=== PATIENT | male | born 1970 | race Caucasian/White ===

== ENCOUNTER → 2020-01-31 08:56 | Outpatient (CLI) | payer MEDICARE, SELFPAY ==
--- NOTE | 2020-01-31 08:56 | CT_ITS ---
PROCEDURE: CT ABDOMEN PELVIS W CON CLINICAL INDICATION: hernia Umbilical hernia, bloating, discomfort COMPARISON: No exams were available for comparison TECHNIQUE: IV Contrast: 75ML OPTIRAY 350 Oral Contrast 450ml Redicat Axial images obtained with sagittal and coronal reformats. All CT scans at the facility use one or more dose reduction, viz: automated exposure control, ma/kV adjustment per patient size (including targeted exams where dose is matched to indication, i.e. head), or iterative reconstruction technique. FINDINGS: LOWER THORAX: There are mild atelectatic changes in the lung bases. Coronary artery calcifications are noted. Left hemidiaphragm is elevated. ABDOMEN & PELVIS: Cirrhotic appearance of the liver with diffuse abdominal and peritoneal ascites. No focal liver lesion is evident. There is mild splenomegaly at 14 cm. There is mild thickening the wall the stomach in the fundus and upper body of the stomach nonspecific. There are scattered small varices in the epigastric region. No obvious gallstones. The adrenal glands and kidneys and pancreas has an unremarkable appearance. No intestinal obstruction or free air. There are mesenteric varices noted. No evidence of appendicitis or diverticulitis. There are scattered diverticula in the sigmoid colon. No acute bony findings. IMPRESSION: 1. Cirrhosis with splenomegaly, mesenteric varices, and diffuse ascites 2. Coronary artery calcifications. 3. Thickening of the wall the stomach which could be due to nondistention versus gastritis. Dictated by: Ash Martinez MD 02/01/2020 08:52 Electronically signed by Ash Martinez MD in [place] 02/01/2020 08:52
== END ==
PROVIDERS: PCP Family Medicine; Visit Provider Surgery
DX: K46.9 Unspecified abdominal hernia without obstruction or gangrene (principal); R10.9 Unspecified abdominal pain
CPT/HCPCS: 74177; Q9967

== ENCOUNTER → 2020-01-31 10:23 | Outpatient (CLI) | payer MEDICARE, SELFPAY ==
[2020-01-31 10:29] LABS: Microscopic, Urine URINE MICROSCOPIC (MICROSCOPIC)
[2020-01-31 11:04] LABS: Basophils % 0.4 % (0.1-2.0); Eosinophils # 0.1 K/mm3 (0.0-0.4); Eosinophils % 0.5 % (0.1-12.0); Hematocrit 44.7 % (42.0-52.0); Hemoglobin 14.3 g/dL (14.1-18.0); Lymphocytes # 0.5 K/mm3 (0.7-4.5); Mean Corpuscular Hemoglobin 33.6 pg (27.0-31.2); Mean Corpuscular Volume 105.1 fl (80-94); Monocytes # 0.4 K/mm3 (0.1-1.0); Monocytes % 3.6 % (1.7-9.3); Neutrophils % 90.5 % (37.0-80.0); Platelet Count 65 K/mm3 (142-424); Red Blood Count 4.26 M/mm3 (4.60-6.20); Red Cell Distribution Width 16.2 % (11.5-17.5)
[2020-01-31 11:33] LABS: MANUAL DIFFERENTIAL MANUAL DIFFERENTIAL (MANUAL DIFF)
[2020-01-31 12:18] LABS: Alanine Aminotransferase 57 U/L (12-78); Albumin Level 3.9 g/dl (3.5-5.0); Alkaline Phosphatase 170 U/L (38-126); Anion Gap 12.3 mEq/L (5-15); Aspartate Amino Transferase 102 U/L (17-59); Bilirubin,Total 2.7 mg/dl (0.2-1.3); Blood Urea Nitrogen 8 mg/dl (9-20); Calcium 9.7 mg/dl (8.4-10.2); Carbon Dioxide 32 mmol/L (22.0-30.0); Chloride 94 mmol/L (98-107); Estimated Glomerular Filt Rate 175 ml/min (>60); GFR (African American) 212 ML/MIN (>60); Globulin 3.8 g/dL (1.3-3.2); Glucose 128 mg/dl (74-100); Potassium 5.3 mmoL/L (3.5-5.1); Sodium 133 mmol/L (136-145); Total Protein,Serum 7.7 g/dl (6.3-8.2)
[2020-01-31 13:01] LABS: Coronavirus 19 IgG Antibody Negative (Negative); Coronavirus 19 IgM Antibody Negative (Negative)
[2020-01-31 13:39] LABS: Appearance,Urine CLEAR (Clear); Bilirubin,Urine Negative (Negative); Blood, Urine Negative (Negative); Color,Urine YELLOW (Yellow); Glucose,Urine (UA) Negative (Negative); Ketones,Urine Negative (Negative); Leukocyte Esterase,Urine Negative (Negative); Nitrate,Urine Negative (Negative); PH,Urine 7.5 (5.0-8.5); Protein,Urine Negative (Negative)
[2020-01-31 13:41] LABS: Lymphocytes % 7 % (10-50); Monocytes % 3 % (2-9); Neutrophils % 90 % (42-76); Platelet Estimate Marked Decrease; Total Cells Counted 100
[2020-01-31 13:42] LABS: Macrocytosis 1+
[2020-01-31 14:02] LABS: RBC,Urine Occasional #/hpf (0-3); Squamous Epithelial Cell,Urine Occasional #/hpf (0-5); WBC,Urine Occasional #/hpf (0-3)
== END ==
LOC: LAB 10:24
PROVIDERS: Visit Provider Surgery
DX: K46.9 Unspecified abdominal hernia without obstruction or gangrene (principal); Z01.818 Encounter for other preprocedural examination
CPT/HCPCS: 36415; 74177; 80053; 81001; 85007; 85025; 86328; Q9967

== ENCOUNTER → 2020-02-01 11:36 | Outpatient (CLI) | payer MEDICARE, SELFPAY ==
[2020-02-01 12:15] LABS: INR 1.43 (0.9-1.1); Prothrombin Time 14.4 seconds (9.4-11.8)
== END ==
PROVIDERS: Visit Provider Surgery
DX: R10.84 Generalized abdominal pain (principal)
CPT/HCPCS: 85610

== ENCOUNTER → 2020-02-27 09:40 | Outpatient (POV) | payer MEDICARE, SELFPAY ==
[2020-02-27 12:41] LABS: Basophils % 0.5 % (0.1-2.0); Eosinophils # 0.1 K/mm3 (0.0-0.4); Eosinophils % 1.2 % (0.1-12.0); Hemoglobin 14.8 g/dL (14.1-18.0); Lymphocytes # 1.1 K/mm3 (0.7-4.5); Lymphocytes % 20.7 % (10-50); Mean Corpuscular HGB Conc 33.6 g/dL (31.8-35.4); Mean Corpuscular Hemoglobin 34.8 pg (27.0-31.2); Mean Corpuscular Volume 103.5 fl (80-94); Monocytes # 0.8 K/mm3 (0.1-1.0); Monocytes % 14.9 % (1.7-9.3); Neutrophils # 3.3 K/mm3 (1.8-7.8); Neutrophils % 62.7 % (37.0-80.0); Platelet Count 78 K/mm3 (142-424); Red Blood Count 4.25 M/mm3 (4.60-6.20); Red Cell Distribution Width 15.7 % (11.5-17.5); White Blood Count 5.3 K/mm3 (4.8-10.8)
[2020-02-27 13:14] LABS: Chloride 90 mmol/L (98-107)
[2020-02-27 13:15] LABS: Potassium 3.8 mmoL/L (3.5-5.1); Sodium 130 mmol/L (136-145)
[2020-02-27 13:17] LABS: Alkaline Phosphatase 124 U/L (38-126); Anion Gap 8.8 mEq/L (5-15); Bilirubin,Total 1.8 mg/dl (0.2-1.3); Blood Urea Nitrogen 12 mg/dl (9-20); Carbon Dioxide 35 mmol/L (22.0-30.0); Estimated Glomerular Filt Rate 142 ml/min (>60); GFR (African American) 172 ML/MIN (>60); Iron 47 ug/dL (49-181)
[2020-02-27 13:18] LABS: Alanine Aminotransferase 60 U/L (12-78); Albumin Level 3.1 g/dl (3.5-5.0); Aspartate Amino Transferase 103 U/L (17-59); Globulin 3.2 g/dL (1.3-3.2); Total Protein,Serum 6.3 g/dl (6.3-8.2)
[2020-02-27 13:23] LABS: Calcium 8.3 mg/dl (8.4-10.2)
[2020-02-27 13:26] LABS: Total Iron Binding Capacity 363 ug/dL (261-462)
[2020-02-27 13:44] LABS: Glucose 137 mg/dl (74-100)
[2020-02-27 13:48] LABS: INR 1.43 (0.9-1.1); Prothrombin Time 14.4 seconds (9.4-11.8)
[2020-02-27 13:52] LABS: Ferritin 75.1 ng/ml (17.9-464)
[2020-02-28 10:11] LABS: Hep A Ab, IgM Negative (Negative); Hepatitis B Core Antibody IgM Negative (Negative); Hepatitis B Surface Antigen Negative (Negative)
[2020-02-28 13:13] LABS: Ceruloplasmin 30.4 mg/dL (16.0-31.0); Immunoglobulin A, Qn 487 mg/dL (90-386); Immunoglobulin G, Qn 1252 mg/dL (603-1613)
[2020-02-28 14:15] LABS: Angiotensin Converting Enzyme <15 U/L (14-82)
[2020-02-29 04:46] LABS: Actin (Smooth Muscle) Antibody 13 Units (0-19); Hepatitis C Antibody 0.7 s/co ratio (0.0-0.9); Immunoglobulin M, Qn 72 mg/dL (20-172); Mitochondrial (M2) Antibody <20.0 Units (0.0-20.0)
[2020-02-29 04:47] LABS: Antinuclear Antibodies, IFA Negative (.); Deamidated Gliadin Abs, IgA 7 units (0-19); Deamidated Gliadin Abs, IgG 3 units (0-19); Endomysial IgA Antibody Negative (Negative); Liver-Kidney Microsomal Ab 1.3 Units (0.0-20.0); Tissue Transglutaminase IgA Ab <2 U/mL (0-3); Tissue Transglutaminase IgG Ab 14 U/mL (0-5)
[2020-02-29 11:05] LABS: Reticulin IgA Antibody Negative titer (Neg:<1:2.5)
[2020-03-01 06:31] LABS: ALT (SGPT) P5P 56 IU/L (0-55); AST (SGOT) P5P 85 IU/L (0-40); Alpha 2-Macroglobulins, Qn 234 mg/dL (110-276); Apolipoprotein A-1 83 mg/dL (101-178); Bilirubin, Total 1.4 mg/dL (0.0-1.2); Cholesterol, Total 137 mg/dL (100-199); Fibrosis Score 0.88 (0.00-0.21); GGT 204 IU/L (0-65); Glucose 135 mg/dL (65-99); Haptoglobin 50 mg/dL (29-370); Steatosis Score 0.78 (0.00-0.30); Triglycerides 57 mg/dL (0-149)
[2020-03-01 11:17] LABS: Alpha-1-Antitrypsin 173 mg/dL (101-187)
[2020-03-01 11:33] LABS: Phenotype (PI) MS (.)
== END ==
PROVIDERS: Visit Provider Nurse Practitioner Family
DX: R14.0 Abdominal distension (gaseous) (principal); K59.00 Constipation, unspecified; K64.9 Unspecified hemorrhoids; D50.9 Iron deficiency anemia, unspecified; Z51.81 Encounter for therapeutic drug level monitoring; R94.5 Abnormal results of liver function studies
CPT/HCPCS: 36415; 80053; 80074; 81256; 82103; 82104; 82164; 82390; 82728; 82784; 83516; 83540; 83550; 85025; 85610; 86038; 86255; 86256; 86376

== ENCOUNTER → 2020-03-01 08:06 | Outpatient (CLI) | payer MEDICARE, SELFPAY ==
--- NOTE | 2020-03-01 | US_ITS ---
PROCEDURE: US ABDOMEN LIMITED CLINICAL INDICATION: CIRRHOSIS Bloating COMPARISON: No exams were available for comparison FINDINGS: PANCREAS: Pancreas is not well delineated due to overlying bowel gas. CT or MRI without and with contrast with pancreatic protocol may provide further evaluation if clinically desired. LIVER: Cirrhotic appearance of the liver. There is increased echogenicity in the region of the proximal portal vein and SMV region with inconsistent areas of blood flow. Cannot exclude the possibility portal venous thrombosis. CT angiography with portal venous phase may provide further evaluation. RIGHT KIDNEY: Unremarkable. Normal size and echogenicity. No hydronephrosis GALLBLADDER: No gallstones, gallbladder wall thickening, pericholecystic fluid, or biliary dilatation. There is mild amount diffuse ascites. IMPRESSION: 1. Findings compatible with cirrhosis with ascites. 2. Low level echoes within the proximal portal vein area raising the suspicion of possible portal vein thrombosis. A CT angiogram with portal venous phase of the abdomen may provide further evaluation Dictated by: Ash Martinez MD 03/02/2020 15:58 Electronically signed by Ash Martinez MD in [facility] 03/02/2020 15:58
== END ==
LOC: RAD 08:07
PROVIDERS: Visit Provider Nurse Practitioner Family
DX: R14.0 Abdominal distension (gaseous) (principal); R19.4 Change in bowel habit; R94.5 Abnormal results of liver function studies; K74.60 Unspecified cirrhosis of liver; K70.0 Alcoholic fatty liver; F10.10 Alcohol abuse, uncomplicated; Z12.11 Encounter for screening for malignant neoplasm of colon
CPT/HCPCS: 76705

== ENCOUNTER → 2020-03-07 11:15 | Outpatient (CLI) | payer MEDICARE, SELFPAY ==
--- NOTE | 2020-03-07 | CT_ITS ---
Procedure: CT ANGIO ABDOMEN PELVIS CLINICAL HISTORY: Bloating, cirrhosis, possible portal venous thrombosis on recent ultrasound COMPARISON: No exams were available for comparison TECHNIQUE: IV Contrast: 100ml Optiray 350 Axial images obtained with sagittal and coronal reformats. All CT scans at the facility use one or more dose reduction, viz: automated exposure control, ma/kV adjustment per patient size (including targeted exams where dose is matched to indication, i.e. head), or iterative reconstruction technique. FINDINGS: Three-phase imaging performed post enhancement with arterial, portal venous, and delayed images. There is moderate stenosis of the ostium of the celiac artery of 50 percent. The SMA has an unremarkable appearance. There is 50 percent stenosis of the ostium the right renal artery. Atheromatous changes are present at the ostium of the left renal artery but no significant stenosis. There is no evidence of portal venous thrombosis. The superior mesenteric vein and splenic vein appears patent radiating into a patent portal vein. The there is cirrhotic appearance of the liver. No liver mass apparent. Gallbladder is distended. The spleen is mildly enlarged at 14 cm. There is diffuse abdominal and peritoneal ascites. The left hemidiaphragm is elevated with mild atelectatic changes in the lung base on the left. There are extensive coronary artery calcifications. There is thickening of the gastric wall which may be due to nondistention. There is a small umbilical hernia containing fluid No intestinal obstruction or free air. No evidence of appendicitis or diverticulitis. There are degenerative changes in the thoracic and lumbar spine. IMPRESSION: 1. No evidence portal vein thrombosis 2. Cirrhosis with ascites and mild splenomegaly Dictated by: Ash Martinez MD 03/08/2020 10:52 Electronically signed by Ash Martinez MD in [facility] 03/08/2020 10:52
== END ==
PROVIDERS: Visit Provider Internal Medicine Gastroenterology
DX: R10.84 Generalized abdominal pain (principal)
CPT/HCPCS: 74174; Q9967

== ENCOUNTER → 2020-03-26 10:36 | Outpatient (POV) | payer MEDICARE, SELFPAY | PROVIDERS: Visit Provider Nurse Practitioner Family | DX: Z00.00 Encounter for general adult medical examination without abnormal findings (principal) ==

== ENCOUNTER 2020-04-02 08:20 | Day surgery (SDC) | payer MEDICARE, SELFPAY ==
[2020-04-02] VITALS (11 sets, daily range): BP systolic 108–146; BP diastolic 78–99; PULSE 70–85; RESP 18–20; TEMP 36.4–36.8; O2SAT 95–97; BMI 27.9
--- NOTE | 2020-04-02 | US_ITS ---
PROCEDURE: US PARACENTESIS CLINICAL INDICATION: Abdominal pain and swelling COMPARISON: No exams were available for comparison TECHNIQUE: Informed consent was obtain prior to procedure. After appropriate Time out, under aseptic conditions and local anesthesia with 1% buffered lidocaine using sonographic guidance a 6 Malay [id number] catheter was inserted into the largest pocket of fluid localized in the right lower quadrant. Approximately 6900 mL of Serosanguineous fluid was drained. The patient tolerated the procedure well and left the radiology suite in stable condition. FINDINGS: Diffuse ascites IMPRESSION: Successful sonographic guided paracentesis without complication. Dictated by: Ash Martinez MD 04/02/2020 16:47 Electronically signed by Ash Martinez MD in [place] 04/02/2020 16:47
[2020-04-02 09:23] LABS: Coronavirus 19 IgG Antibody Negative (Negative); Coronavirus 19 IgM Antibody Negative (Negative)
--- NOTE | 2020-04-02 10:09 | P.PCN_ITS ---
[facility] Procedure Note Procedure Note:: Upper Endoscopy Procedure Report: Esophagogastroduodenoscopy with cold biopsies and variceal band ligation Endoscopost: Paul Mancini II, MD Referring Physician: Chai Abrams MD Date of Procedure: April 02, 2020 Equipment: Olympus GIF 180 standard upper endoscope Sedation: MAC sedation Indications: Mr. Naranjo is a 49-year-old gentleman with chronic alcoholic cirrhosis. The patient did have a CAT scan on January 31, 2020 that showed cirrhosis, portal hypertension, splenomegaly and esophageal and mesenteric varices. He also had ascites. The patient had a MELD score of 17. He was drinking about 20 beers per day. He is slowly weaning off of this. He has had reduced abdominal girth and weight loss of 14 pounds. He has less lower extremity edema. He is taking milk thistle. He has had elevated liver chemistries for almost 30 years. The patient has been on MiraLAX and fiber to improve bowel function. His ultrasound of the abdomen on March 01, 2020 showed possible proximal portal vein thrombosis. A CT scan with angiogram of the abdomen on March 07, 2020 showed no evidence of portal vein thrombosis. The patient reports no dysphagia or other abdominal complaints. Procedure: Prior to the procedure, a history and physical exam was performed, and patient's medications and allergies were reviewed. The risks, benefits and alternatives of the sedation and procedure were discussed with the patient. All questions were answered and informed consent was obtained. The patient was brought to the procedure room. Patient identification and proposed procedure were verified by the physician and the nurse. The patient was placed in a left lateral decubitus position and the scope was passed under direct vision. Throughout the procedure, the patient's blood pressure, pulse, and oxygen saturations were monitored continuously. The upper GI endoscopy was accomplished without difficulty. The patient tolerated the procedure well. Findings: The scope was passed directly into the upper esophagus and advanced to the third portion of the duodenum. There was some scalloping of the duodenal folds/conniventes and cold biopsies were obtained to rule out celiac disease. The scope was withdrawn through a normal duodenal bulb and pylorus into the stomach. There was mild gastropathy of the antrum. There was moderate portal gastropathy of the body and fundus of the stomach. Upon retroflexion within the stomach there was no hiatal hernia or gastric varices/fundic varices. Cold biopsies were taken x1 on the lesser curvature of the stomach. The scope was then withdrawn into the esophagus. There were grade 2-3 esophageal varices with stigmata (red and blue neel signs) and these were banded x7 with excellent ligation effect. There was no evidence of reflux esophagitis or Thompson's. The remainder of the esophageal mucosa was normal. Impression: 1. Grade 2-3 esophageal varices with stigmata (red and blue neel signs) status post band ligation x7 2. Moderate portal gastropathy 3. Scalloping of duodenal conniventes?rule out celiac disease Plan: I will follow-up the biopsies. I would continue the patient on a nonselective beta-ramos. The patient is on nadolol. We will discuss portal hypertension. We will also discuss his MELD SCORE of 17 and progression towards liver failure. He will likely need follow-up with us (local GI/hepatology) and tertiary liver center ([facility]). I will proceed with screening colonoscopy.
--- NOTE | 2020-04-02 10:21 | HMH.ANESCL ---
[facility] Anesthesia Checklist - Structural Data Admitted From: Home Planned Operative Procedure/s: egd/colonoscopy Consent for Planned Operative Procedure(s) Verified: Yes - Airway Assessment C-Spine Mobility Assessed: Yes TMJ Mobility Assessed: Yes Dentition: Poor Dentition - Neurological Assessment Level of Consciousness: Awake, Alert, Appropriate - Anesthesia Plan Anesthesia Risk discussed: Yes Anesthesia Plan: Verified ASA Class: III Anesthesia Type: MAC [facility] History I have reviewed the patient's past medical history: Yes Medical History: Reports:: Hypertension Denies:: Cancer, Diabetes Mellitus Type 1, Diabetes Mellitus Type 2, Internal Pacemaker, MRSA, Seizures *Have you ever received a pneumonia vaccine?: No *Have you received a flu vaccine this season?: No Other Medical History: Reports: Other (medically induced coma for 21 days) Anesthesia experience/problems:: none Laterality Cases: Bilateral: Arthroscopy Knee, Carpal Tunnel Release Other Surgeries: Yes: Appendectomy, Other. No: Pacemaker Amputation: No Fractures: No - *Social History Last grade of school completed: High school graduate Smoking Status: Current every day smoker Tobacco Type: cigarettes # Packs/Day (cigarettes): 2 Alcohol Intake: current Alcohol Intake Frequency:: 3 or more drinks per day Substance Use Type: denies use *Occupational Status:: disabled Housing: house Household Members: spouse *Travel in the last 8 weeks: None Family Hx:: Unable to obtain
--- NOTE | 2020-04-02 10:39 | HMH.PROC ---
[facility] Procedure Note Procedure Note:: Colonoscopy Procedure Report: Colonoscopy with cold snare polypectomy Endoscopist: Paul Mancini II, MD Referring physician: Chai Abrams MD Date of Procedure: April 02, 2020 Equipment: Olympus 180 variable stiffness pediatric colonoscope Sedation: MAC sedation Indication: Mr. Naranjo is a 49-year-old gentleman with La?nnec's cirrhosis. He does have portal hypertension, varices and ascites. His MELD SCORE was 17. The patient is also here for high risk screening colonoscopy. His brother had colon cancer at the age of 48. The patient has had some chronic constipation/obstipation. He is doing better with a fiber bowel regimen (MiraLAX plus fiber) but still feels incomplete defecation at times with straining and pressure. He reports no rectal bleeding or hematochezia. He reports no abdominal pain. He has had some weight loss with diuretic therapy. He did have a colonoscopy nearly 20 years ago. Procedure: Prior to the procedure, a history and physical exam was performed, and patient's medications and allergies were reviewed. The risks, benefits and alternatives of the sedation and procedure were discussed with the patient. All questions were answered and informed consent was obtained. The patient was brought to the procedure room. Patient identification and proposed procedure were verified by the physician and the nurse. The patient was placed in a left lateral decubitus position and the scope was passed under direct vision. Throughout the procedure, the patient's blood pressure, pulse, and oxygen saturations were monitored continuously. The colonoscopy was accomplished without difficulty. The patient tolerated the procedure well. Findings: On digital rectal examination there was normal rectal tone. There were no external hemorrhoids. The colonoscope was introduced through the anal canal to the rectum and advanced to the cecum. The ileocecal valve and appendiceal orifice were identified. The scope was advanced a short distance into the ileum which appeared grossly normal. The scope was then withdrawn into the colon. The cecum and ascending and transverse colon were normal. There was a 6 mm polyp in the descending colon and 2 polyps (3 and 4 mm) in the sigmoid colon. These polyps were removed via cold snare polypectomy. An Endo Clip was placed over the largest polypectomy site due to some minor oozing/heme. The remainder of the colonic mucosa was normal. Upon retroflexion within the rectum there were grade 1 internal hemorrhoids.The preparation was excellent throughout with Hardin Preparation Score of 9. The cecal time was 11 minutes. Impression: 1. Diminutive colonic polyps x3 2. Grade 1 internal hemorrhoids Plan: I will follow up the polyp pathology and recommend repeat colonoscopy again in 5 years based upon the patient's family history and present polyp histology. I would encourage continuation of the fiber bowel regimen (MiraLAX plus bulk fiber supplementation) on a long-term daily maintenance basis.
--- NOTE | 2020-04-02 11:16 | PC.NURSE ---
removed bite block
--- NOTE | 2020-04-02 11:48 | US_ITS ---
PROCEDURE: US ABDOMEN COMPLETE CLINICAL INDICATION: liver failure COMPARISON: US ABDOMEN LIMITED from 03/01/2020 CT ANGIO ABDOMEN PELVIS from 03/07/2020 FINDINGS: PANCREAS: Pancreas is not well delineated due to overlying bowel gas. CT or MRI without and with contrast with pancreatic protocol may provide further evaluation if clinically desired. LIVER: There is coarse echogenicity of the liver with irregularity of the margins consistent with cirrhosis. There is appropriate direction of blood flow within non dilated portal vein. No focal liver lesions are evident. RIGHT KIDNEY: Unremarkable. Normal size and echogenicity. No hydronephrosis LEFT KIDNEY: Unremarkable. Normal size and echogenicity. No hydronephrosis GALLBLADDER: No gallstones, gallbladder wall thickening, pericholecystic fluid, or biliary dilatation. Gallbladder is mildly distended. AORTA: The aorta is not well delineated due to overlying bowel gas SPLEEN: Unremarkable. Normal size and echogenicity ASCITES: There is mild generalized ascites. IMPRESSION: 1. Cirrhosis 2. Ascites 3. Distended gallbladder Dictated by: Ash Martinez MD 04/02/2020 13:11 Electronically signed by Ash Martinez MD in [facility] 04/02/2020 13:11
--- NOTE | 2020-04-02 13:42 | SUR.PHASEII ---
1240- pt transported by Rad staff to Radiology via stretcher for abdominal U/S with possible paracentesis with labs of cell count, albumin and protein. All Orders entered. Pt stable with pain 9/10 , warm blanket applied to abdomen VSS. at BS. IV in right FA intact and instructed Rad to dc IV upon completion of procedure unless needed to have observation and pain control.
[2020-04-02 15:49] LABS: Appearance,Body Fld. Normal; Source, Body Fld. Peritoneal Fluid
[2020-04-02 15:52] LABS: Volume,Body Fld. 1350 mL
[2020-04-02 15:53] LABS: RBC,Body Fluid < 10 cells/uL (< 10 X 10^3); TNC,Body Fluid 174 cells/uL (< 1000)
[2020-04-02 16:20] LABS: Mononuclear WBCs,Body Fluid 9 %; Polynuclear WBC,Body Fluid 91 %
[2020-04-05 08:56] LABS: Albumin, Body Fluid 0.4 g/dL (Not Estab.); Protein, Body Fluid 1.8 g/dL (.)
== END 2020-04-02 12:40 | disposition home or self-care (01) ==
LOC: OUTP 08:23
PROVIDERS: PCP Nurse Practitioner Family; Visit Provider Internal Medicine Gastroenterology
PROC: 0DJ08ZZ Inspection of Upper Intestinal Tract, Via Natural or Artificial Opening Endoscopic (ICD-10-PCS; CPT 43235; principal; 2020-04-02 09:00)
DX: Z12.11 Encounter for screening for malignant neoplasm of colon (principal); K63.5 Polyp of colon; K64.0 First degree hemorrhoids; K70.30 Alcoholic cirrhosis of liver without ascites; I85.10 Secondary esophageal varices without bleeding; K31.9 Disease of stomach and duodenum, unspecified; K29.80 Duodenitis without bleeding; K76.6 Portal hypertension; Z80.0 Family history of malignant neoplasm of digestive organs; Z87.39 Personal history of other diseases of the musculoskeletal system and connective tissue; Z90.49 Acquired absence of other specified parts of digestive tract; Z72.0 Tobacco use
CPT/HCPCS: 43239; 43244; 45385; 49083; 76700; 82042; 84155; 86328; 88305; 89051; J2704

== ENCOUNTER → 2020-04-09 14:37 | Outpatient (POV) | payer MEDICARE, SELFPAY | PROVIDERS: Visit Provider Nurse Practitioner Family | DX: Z00.00 Encounter for general adult medical examination without abnormal findings (principal) ==

== ENCOUNTER 2020-04-10 11:12 | Outpatient (CLI) | payer MEDICARE, SELFPAY ==
[2020-04-10 11:26] VITALS: BMI 29.0
--- NOTE | 2020-04-10 11:40 | US_ITS ---
PROCEDURE: US ABDOMEN LIMITED CLINICAL INDICATION: ALCOHOL ABUSE, FATTY LIVER (ALCOHOLIC), CIRRHOSIS . COMPARISON: US US ABDOMEN COMPLETE from 04/02/2020 FINDINGS: Patient was scheduled for a paracentesis however, upon close examination there was only a small amount fluid noted within the abdomen. There was not felt to be an adequate amount fluid for safe therapeutic paracentesis. These results were explained to the patient IMPRESSION: Small amount of ascites. Inadequate volume for therapeutic paracentesis Dictated b Ash Martinez MD 04/10/2020 13:09 Ash Martinez MD in [place] 04/10/2020 13:09
[2020-04-10 11:52] LABS: Alanine Aminotransferase 33 U/L (12-78); Albumin Level 2.9 g/dl (3.5-5.0); Albumin/Globulin Ratio 0.9 (1.1-1.8); Alkaline Phosphatase 125 U/L (38-126); Anion Gap 8.6 mEq/L (5-15); Aspartate Amino Transferase 72 U/L (17-59); Bilirubin,Total 2.3 mg/dl (0.2-1.3); Blood Urea Nitrogen 8 mg/dl (9-20); Calcium 8.6 mg/dl (8.4-10.2); Carbon Dioxide 36 mmol/L (22.0-30.0); Chloride 92 mmol/L (98-107); Creatinine Clearance Estimated 283 mL/min (50-200); Estimated Glomerular Filt Rate 227 ml/min (>60); GFR (African American) 274 ML/MIN (>60); Globulin 3.4 g/dL (1.3-3.2); Glucose 107 mg/dl (74-100); Potassium 3.6 mmoL/L (3.5-5.1); Sodium 133 mmol/L (136-145); Total Protein,Serum 6.3 g/dl (6.3-8.2)
--- NOTE | 2020-04-10 13:05 | PC.NURSE ---
1305-per rad pt did not have enough fluid for u/s guided paracentesis; form grader operator notified office; no new orders pt will be discharged.
== END 2020-04-10 13:05 | disposition home or self-care (01) ==
PROVIDERS: PCP Nurse Practitioner Family; Visit Provider Nurse Practitioner Family
DX: F10.10 Alcohol abuse, uncomplicated (principal); K70.0 Alcoholic fatty liver; K74.60 Unspecified cirrhosis of liver; K76.6 Portal hypertension; I85.00 Esophageal varices without bleeding
CPT/HCPCS: 76705; 80053